=== PATIENT | female | born 1995 | race American Indian/Alaskan Native ===

== ENCOUNTER 2017-04-22 12:21 | Emergency (ER) | payer BC ==
[2017-04-22 12:27] VITALS: BP 147/75
--- NOTE | 2017-04-22 14:46 | Emergency Department Report ---
ED Female HPI - General Chief complaint: Urogenital-Female Stated complaint: VAGINAL DISCHARGE Time Seen by Provider: 04/22/17 14:46 Source: patient Mode of arrival: Ambulatory Limitations: No Limitations - History of Present Illness Initial comments: Patient reports that she wants to be checked for STD and to be treated. Unsafe sex and unknown if partner have STD. Denies any pain at present but says she was having pelvic pain. Denies some vaginal discharge and that she had small amount of vaginal bleeding and but not now. Patient says that she has heavy menses 1 month and she says she does not have [facility] but like to be referred to one. She denies any abdominal pain, nausea or vomiting or fever or chills. Denies any constipation. She said her last menstrual period B period was about 03/09/2017 .denies any medical problems. Denies any urinary frequency, urgency or burning MD Complaint: vaginal bleeding, vaginal discharge, pelvic pain, possible STD Onset/Timin -: days(s) Severity scale (0 -10): 0 Are you Now?: No Associated Symptoms: vaginal discharge, vaginal bleeding, abdominal pain. denies: nausea/vomiting, fever/chills, headaches, loss of appetite, dysuria, hematuria, rash, seizure, shortness of breath, syncope, weakness - Related Data Sexually active: Yes Previous Rx's Medication Instructions Recorded Last Taken Type Ibuprofen [Motrin 800 MG tab] 800 mg PO Q8HR PRN #30 tablet 04/19/16 Unknown Rx Polymyxin B Sulf/Trimethoprim 2 drop OP Q6H #10 ml 04/19/16 Unknown Rx [Polytrim Eye Drops [id number]/0.1%] metroNIDAZOLE [Flagyl] 500 mg PO Q12HR 7 Days #14 tab 04/22/17 Unknown Rx Allergies Allergy/AdvReac Type Severity Reaction Status Date / Time coconut oil Allergy Hives Verified 04/18/16 20:50 ED Review of Systems ROS: Stated complaint: VAGINAL DISCHARGE Other details as noted in HPI Comment: All other systems reviewed and negative Constitutional: no symptoms reported Eyes: denies: eye pain, vision change ENT: denies: throat pain, congestion Respiratory: no symptoms reported Cardiovascular: denies: chest pain, palpitations, dyspnea on exertion, orthopnea , edema, syncope, paroxysmal nocturnal dyspnea Gastrointestinal: abdominal pain. denies: nausea, vomiting, diarrhea, constipation, hematemesis, melena, hematochezia Genitourinary: frequency, discharge, abnormal menses, dyspareunia, other (scant amount of vaginal bleeding a few days ago). denies: urgency, dysuria, hematuria Musculoskeletal: denies: back pain, joint swelling, arthralgia, myalgia Skin: denies: rash Neurological: denies: headache, numbness, confusion ED Past Medical Hx - Past Medical History Previous Medical History?: No - Surgical History Past Surgical History?: No - Family History Family history: no significant - Social History Smoking Status: Never Smoker Substance Use Type: None - Medications Home Medications: Home Medications Medication Instructions Recorded Confirmed Last Taken Type Ibuprofen [Motrin 800 MG tab] 800 mg PO Q8HR PRN #30 tablet 04/19/16 Unknown Rx Polymyxin B Sulf/Trimethoprim 2 drop OP Q6H #10 ml 04/19/16 Unknown Rx [Polytrim Eye Drops [id number]/0.1%] metroNIDAZOLE [Flagyl] 500 mg PO Q12HR 7 Days #14 tab 04/22/17 Unknown Rx ED Physical Exam - General Limitations: No Limitations General appearance: alert, in no apparent distress - Head Head exam: Present: atraumatic, normocephalic, normal inspection - Eye Eye exam: Present: normal appearance, PERRL, EOMI. Absent: nystagmus, periorbital swelling, periorbital tenderness Pupils: Present: normal accommodation - ENT ENT exam: Present: normal exam, normal orophraynx, mucous membranes moist - Neck Neck exam: Present: normal inspection, full ROM, other (no C-spine tenderness). Absent: tenderness, meningismus, lymphadenopathy, thyromegaly - Respiratory Respiratory exam: Present: normal lung sounds bilaterally. Absent: respiratory distress, chest wall tenderness, accessory muscle use - Cardiovascular Cardiovascular Exam: Present: regular rate, normal rhythm, normal heart sounds. Absent: systolic murmur, diastolic murmur - GI/Abdominal GI/Abdominal exam: Present: soft, normal bowel sounds. Absent: distended, tenderness, guarding, rebound, rigid, organomegaly, mass, bruit, pulsatile mass , hernia - External exam: Present: normal external exam. Absent: erythema, swelling, lesions, lacerations, ecchymosis, bleeding Speculum exam: Present: vaginal discharge, cervical discharge. Absent: normal speculum exam, erythema, vaginal bleeding, foreign body, tissue, laceration Bi-manual exam: Present: normal bi-manual exam. Absent: cervical motion tendernes, adnexal tenderness, adnexal mass, uterine enlargement, uterine tenderness - Extremities Exam Extremities exam: Present: normal inspection, full ROM, normal capillary refill , other (no clubbing, cyanosis or edema. +2+ systolic extremities and no neurovascular compromise). Absent: tenderness, pedal edema, joint swelling, calf tenderness - Back Exam Back exam: Present: normal inspection, full ROM, other (ambulates without any difficulties). Absent: tenderness, CVA tenderness (R), CVA tenderness (L), muscle spasm, paraspinal tenderness, vertebral tenderness, rash noted - Neurological Exam Neurological exam: Present: alert, oriented X3, normal gait, reflexes normal. Absent: motor sensory deficit - Psychiatric Psychiatric exam: Present: normal affect, normal mood - Skin Skin exam: Present: warm, dry, intact, normal color. Absent: rash - Other Other exam information: Pertinent lab: Both breasts examined with patient sedated with arms on side without any abnormality, right breast exam is normal. Left breasts with 2 x 3 cm mobile mass, nontender to palpate to inner lower left breasts. Both nipples are normal without any discharge. I revealed a normal appearance.. ED Course Vital Signs 04/22/17 12:23 Temperature 98 F Pulse Rate 65 Respiratory 18 Rate Blood Pressure 147/75 O2 Sat by Pulse 100 Oximetry - Reevaluation(s) Reevaluation #1: 04/22/17 17:19 Patient chose to be treated empirically for gonorrhea and chlamydia in emergency room. She was given Rocephin 250 mg IM, azithromycin 1 g by mouth. She is able to tolerate oral liquids. Pelvic exam with vaginal discharge otherwise normal without any CMT. Positive bacterial vaginosis, negative trichomoniasis and negative use. test is negative. And her CBC is normal. ED Medical Decision Making - Lab Data Result diagrams: 04/22/17 15:42 Lab Results 04/22/17 04/22/17 04/22/17 Range/Units 14:55 15:42 15:47 WBC 6.0 (4.5-11.0) K/mm3 RBC 4.17 (3.65-5.03) M/mm3 Hgb 13.4 (10.1-14.3) gm/dl Hct 40.2 (30.3-42.9) % MCV 96 (79-97) fl MCH 32 (28-32) pg MCHC 33 (30-34) % RDW 13.5 (13.2-15.2) % Plt Count 195 (140-440) K/mm3 Lymph % (Auto) 34.2 (13.4-35.0) % Glynn % (Auto) 6.9 (0.0-7.3) % Eos % (Auto) 3.7 (0.0-4.3) % Baso % (Auto) 1.1 (0.0-1.8) % Lymph # 2.0 (1.2-5.4) K/mm3 Glynn # 0.4 (0.0-0.8) K/mm3 Eos # 0.2 (0.0-0.4) K/mm3 Baso # 0.1 (0.0-0.1) K/mm3 Seg Neutrophils % 54.1 (40.0-70.0) % Seg Neutrophils # 3.2 (1.8-7.7) K/mm3 HCG, Qual Negative (Negative) Urine Color Yellow (Yellow) Urine Turbidity Clear (Clear) Urine pH 6.0 (5.0-7.0) Ur Specific [place] 1.023 (1.003-1.030) Urine Protein <15 mg/dl (Negative) mg/dL Urine Glucose (UA) Neg (Negative) mg/dL Urine Ketones Neg (Negative) mg/dL Urine Blood Neg (Negative) Urine Nitrite Neg (Negative) Urine Bilirubin Neg (Negative) Urine Urobilinogen 2.0 (<2.0) mg/dL Ur Leukocyte Esterase Neg (Negative) Urine WBC (Auto) 2.0 (0.0-6.0) /HPF Urine RBC (Auto) 2.0 (0.0-6.0) /HPF U Epithel Cells (Auto) 5.0 (0-13.0) /HPF Urine Mucus Few /HPF Wet prep: Positive bacterial vaginosis, negative yeast and negative chart Coronary and chlamydia pending - Medical Decision Making ED course: Ashen here concerned about being and also concern for STD due to vaginal discharge. She is also concerned that she had her menses for 1 month. Patient says she does not have [facility] and has not seen a physician in years. She is requests then to be referred to [facility] pelvic exam done and findings for vaginal discharge with mild odor otherwise normal. Wet prep revealed bacterial vaginosis, no trichomoniasis or no use. Gonorrhea and chlamydia sent and pending. Patient wants to be treated for gonorrhea and chlamydia. She states that she does not know if her partner have similar symptoms. I discussed with her that she needs to tell her partner that she was treated for STD in emergency room and here she will need to get checked at the health department. She voiced understanding. Patient was given azithromycin 1 g by mouth and Rocephin 250 mg IM in emergency room without any adverse reaction. Patient was also concerned about lump in her left breast that she said it's has been there for several months but she reports she gets bigger when she drinks Sodas. I discussed her diagnosis and treatment plan and also lab reports and she voiced understanding patient discharged home with prescription for Flagyl and to follow up with [facility] in 2-3 days for Pap smear and also for breast exam with outpatient referral for mammogram. She was understanding of discharge instruction and treatment plan. I discussed with her extensively regarding need for Pap smear to check for HPV which is a precursor for cervical cancer and also because she has a history of breast cancer in her family with a breast mass she will need to definitely get a mammogram to check for breast cancer. She can go to the department for further STD testing and also for recheck. Patient says she'll call [facility] in the morning to schedule follow-up visit. Critical care attestation.: If time is entered above; I have spent that time in minutes in the direct care of this critically ill patient, excluding procedure time. ED Disposition Clinical Impression: Concern about STD in female without diagnosis, Bacterial vaginosis, Vaginal discharge, Abnormal menstrual cycle, Breast mass, left Disposition: DC-01 TO HOME OR SELFCARE Is pt being admited?: No Does the pt Need Aspirin: No Condition: Stable Instructions: Bacterial Vaginosis (ED), Safe Sex (ED), Sexually Transmitted Diseases (ED), Lanolin (On the skin), Mammogram (ED), Breast Mass (ED), Pap Smear (ED) Additional Instructions: Please see referral to [facility] doctor and if he cannot get into this Dr. Janice velasco also see [facility] at [facility]. UR scheduled to have a Pap smear due to STD history. Hyou need to be checked for HPV virus which can cause cancer any cervix. He will also need to be referred for outpatient mammogram regarding last breast mass due to family history of breast cancer and mass in your left breast. You were treated for gonorrhea and chlamydia in the emergency room and will need to follow-up at health department in 7-10 days for recheck. You were treated for bacterial vaginosis so please take medication as prescribed. Please not have any sexual activity for the next 2 weeks and please that U partner notes that they need to be checked at the health department for STDs. Avoid drinking all call while taken medication for bacterial vaginosis as the skin cause negative reaction. Prescriptions: metroNIDAZOLE [Flagyl] 500 mg PO Q12HR 7 Days #14 tab Referrals: VERONICA AVENDANO MD [Staff Physician] - 2-3 Days [facility] [Outside] - 2-3 Days Forms: STI Treatment and Prevention, Work/School Release Form(ED)
[2017-04-22 15:11] LABS: Bilirubin,Urine NEG (Negative); Blood,Urine NEG (Negative); Color,Urine Yellow (Yellow); Mucus,Urine FEW /HPF; Nitrite,Urine NEG (Negative); Protein,Urine <15 mg/dL mg/dL (Negative)
[2017-04-22 15:59] LABS: Basophils # (Auto) 0.1 K/mm3 (0.0-0.1); Basophils % (Auto) 1.1 % (0.0-1.8); Eosinophils # (Auto) 0.2 K/mm3 (0.0-0.4); Eosinophils % (Auto) 3.7 % (0.0-4.3); Hematocrit 40.2 % (30.3-42.9); Hemoglobin 13.4 gm/dl (10.1-14.3); Lymphocytes % (Auto) 34.2 % (13.4-35.0); Mean Corpuscular HGB Conc 33 % (30-34); Mean Corpuscular Hemoglobin 32 pg (28-32); Mean Corpuscular Volume 96 fl (79-97); Monocytes # (Auto) 0.4 K/mm3 (0.0-0.8); Monocytes % (Auto) 6.9 % (0.0-7.3); Platelet Count 195 K/mm3 (140-440); Red Blood Count 4.17 M/mm3 (3.65-5.03); Red Cell Distribution Width 13.5 % (13.2-15.2)
[2017-04-22] MEDS ORDERED: ROCEPHIN IM ONE (17:12)
[2017-04-22] MEDS ORDERED: XYLOCAINE 1% MPF 5 mL INFILTRATI ONE (17:12)
[2017-04-22] MEDS ORDERED: ZITHROMAX PO ONE (17:12)
== END 2017-04-22 17:47 | disposition home or self-care (01) ==
LOC: ED 12:21
DX: N76.0 Acute vaginitis (principal); B96.89 Other specified bacterial agents as the cause of diseases classified elsewhere; N95.8 Other specified menopausal and perimenopausal disorders; N63.20 Unspecified lump in the left breast, unspecified quadrant; Z91.048 Other nonmedicinal substance allergy status
CPT/HCPCS: 36415; 81001; 84703; 85025; 87086; 87210; 96372; 99284; J0696

== ENCOUNTER 2017-12-22 13:42 | Emergency (ER) | payer BC ==
[2017-12-22] MEDS ORDERED: MOTRIN PO ONE (18:04)
--- NOTE | 2017-12-22 18:04 | Emergency Department Report ---
HPI - General Chief Complaint: Urogenital-Female Time Seen by Provider: 12/22/17 17:20 - HPI HPI: Patient is a 22-year-old female presents with ED complaining of lump/mass on left breast for the past year. Patient states that she received a mammogram in May or June while she was in nursing home and was still she has a mass in her breast. Patient states that masses become painful and breast is painful to touch. She denies fevers/chills/nausea vomiting/abdominal pain/chest pain/shortness of breath/discharge or trauma to the breast ED Past Medical Hx - Past Medical History Previous Medical History?: No - Surgical History Past Surgical History?: No - Social History Smoking Status: Current Every Day Smoker Substance Use Type: None - Medications Home Medications: Home Medications Medication Instructions Recorded Confirmed Last Taken Type Polymyxin B Sulf/Trimethoprim 2 drop OP Q6H #10 ml 04/19/16 Unknown Rx [Polytrim Eye Drops [id number]/0.1%] metroNIDAZOLE [Flagyl] 500 mg PO Q12HR 7 Days #14 tab 04/22/17 Unknown Rx Ibuprofen [Motrin 800 MG tab] 800 mg PO Q8HR PRN #30 tablet 12/22/17 Unknown Rx Sulfamethoxazole/Trimethoprim 1 each PO BID #20 tablet 12/22/17 Unknown Rx [Bactrim DS TAB] Tocopherol [Vitamin E Cap] 200 unit PO DAILY #30 capsule 12/22/17 Unknown Rx ED Review of Systems ROS: Stated complaint: POSS CYST ON (L) BREAST/CHEST PAINS Other details as noted in HPI Constitutional: denies: chills, fever Eyes: denies: eye pain, eye discharge, vision change ENT: denies: ear pain, throat pain, hearing loss Respiratory: denies: cough, shortness of breath, SOB with exertion, wheezing Cardiovascular: denies: chest pain, palpitations Endocrine: no symptoms reported Gastrointestinal: denies: abdominal pain, nausea, diarrhea Genitourinary: denies: urgency, dysuria, discharge Musculoskeletal: denies: back pain, joint swelling, arthralgia Skin: denies: rash, lesions Neurological: denies: headache, weakness, paresthesias Psychiatric: denies: anxiety, depression Hematological/Lymphatic: denies: easy bleeding, easy bruising Physical Exam - Physical Exam Vital Signs: Vital Signs 12/22/17 13:49 Temperature 99.2 F Pulse Rate 93 H Respiratory 20 Rate Blood Pressure 135/81 O2 Sat by Pulse 100 Oximetry Physical Exam: GENERAL: Alert and oriented x3, no apparent distress, Normal Gait, atraumatic. HEAD: Head is normocephalic and a-traumatic. EYES: Extra ocular muscles are intact. Pupils are equal, round, and reactive to light and accommodation. LUNGS: Symetrical with respiration, No wheezing, HEART: S1, S2 present, regular rate and rhythm without murmur, no rubs, no gallops. Non tender to palpation BREAST: Symetrical, Supple bilaterally, Masses palpated from 6-8 o clock tender to palpation, no other lesions, ulcerations. SKIN: Warm and dry, No lesions, No ulceration or induration present. ED Course Vital Signs 12/22/17 13:49 Temperature 99.2 F Pulse Rate 93 H Respiratory 20 Rate Blood Pressure 135/81 O2 Sat by Pulse 100 Oximetry ED Medical Decision Making - Medical Decision Making 22-year-old female presents with painful mass of the left breast. ED course: Patient received ibuprofen for pain. I discussed with patient follow-up with/[facility] for examination, ultrasound and possibly biopsy. I discussed the patient patient to go home on antibiotics/pain medication trial Patient is in no acute or respiratory distress. She understands all instructions given. Critical care attestation.: If time is entered above; I have spent that time in minutes in the direct care of this critically ill patient, excluding procedure time. ED Disposition Clinical Impression: Breast mass, left, Mastodynia of left breast Disposition: DC-01 TO HOME OR SELFCARE Is pt being admited?: No Does the pt Need Aspirin: No Condition: Stable Instructions: Chest Pain (ED) Additional Instructions: Make sure to follow up with the primary care physician as discussed. Take all your medications as you've been prescribed. If you have any worsening symptoms or develop new symptoms please return to ED immediately. Prescriptions: Ibuprofen [Motrin 800 MG tab] 800 mg PO Q8HR PRN #30 tablet PRN Reason: Pain Sulfamethoxazole/Trimethoprim [Bactrim DS TAB] 1 each PO BID #20 tablet Tocopherol [Vitamin E Cap] 200 unit PO DAILY #30 capsule Referrals: PRIMARY MD ORTIZ [Primary Care Provider] - 3-5 Days RYAN BRIDGES MD [Referring] - 3-5 Days [facility] [Outside] - 3-[address] [facility] [Outside] - 3-5 Days [facility] [Outside] - 3-5 Days Forms: Work/School Release Form(ED) Time of Disposition: 18:16
[2017-12-22 18:25] VITALS: BP 134/72
== END 2017-12-22 18:27 | disposition home or self-care (01) ==
LOC: ED 13:42
DX: N63.0 Unspecified lump in unspecified breast (principal); N64.4 Mastodynia; F17.200 Nicotine dependence, unspecified, uncomplicated; Z91.018 Allergy to other foods
CPT/HCPCS: 99282

== ENCOUNTER 2018-09-12 20:38 | Emergency (ER) | payer BC ==
[2018-09-12 21:45] VITALS: BP 123/84
--- NOTE | 2018-09-12 21:46 | Event Note ---
ED Screening Note Date of service: 09/12/18 Time: 21:41 ED Screening Note: This is a 23 y.o. F. that presents to the ER with migraine, SOB, sore throat, chills, and vomiting x 4 days. LMP 06/13/2018, history of irregular menses and homosexual. PMH of migraines This initial assessment/diagnostic orders/clinical plan/treatment(s) is/are subject to change based on patients health status, clinical progression and re- assessment by fellow clinical providers in the ED. Further treatment and workup at subsequent clinical providers discretion. Patient/guardian urged not to elope from the ED as their condition may be serious if not clinically assessed and managed. Initial orders include: ACC for further evaluation Rapid strep
[2018-09-13] MEDS ORDERED: TORADOL IM ONE (00:41)
[2018-09-13] MEDS ORDERED: BICILLIN L-A IM ONE (00:42)
[2018-09-13] MEDS ORDERED: LIDOCAINE VISCOUS 2% PO ONE (00:42)
[2018-09-13] MEDS ORDERED: DECADRON PO ONE (00:43)
[2018-09-13] MEDS ORDERED: ZOFRAN ODT PO ONE (00:43)
--- NOTE | 2018-09-13 01:43 | Emergency Department Report ---
ED General Adult HPI - General Chief complaint: Dyspnea/Respdistress Stated complaint: HEAD PAIN/SHORTNESS OF BREATH Time Seen by Provider: 09/12/18 21:41 Source: patient Mode of arrival: Ambulatory Limitations: No Limitations - History of Present Illness Initial comments: Patient is a 23-year-old [place] female with a history of chronic migraine headache who presents to the ED with complaint of acute onset persistent severe sore throat, dysphagia, swollen throat, diffuse body aches and pains, numbness or sinus congestion, dry cough, and generalized weakness for the last 5 days. Patient also complains of subjective fever and lack of appetite. Patient denies chest pain, shortness of breath, abdominal pain, dizziness, diarrhea, dysuria, urinary frequency and urgency, change in vision or neck pain. MD Complaint: SORE THROAT; DYSPHAGIA, HEADACHE, BODY ACHES -: Sudden, days(s) (5) Location: mouth Radiation: non-radiation Severity scale (0 -10): 8 Quality: burning, aching, sharp Consistency: constant Improves with: none Worsens with: none Associated Symptoms: denies other symptoms, fever/chills, headaches, loss of appetite, malaise. denies: confusion, chest pain, cough, diaphoresis, nausea/vomiting, rash, shortness of breath, syncope, weakness, other Treatments Prior to Arrival: none - Related Data Previous Rx's Medication Instructions Recorded Last Taken Type Sulfamethoxazole/Trimethoprim 1 each PO BID #6 tablet 03/16/18 Unknown Rx [Bactrim Ds Tablet] predniSONE [Deltasone] 50 mg PO QDAY #5 tab 03/16/18 Unknown Rx Azithromycin [Zithromax Z-WENDY] 250 mg PO DAILY #6 tablet 09/13/18 Unknown Rx Butalb/Acetamin/Caff 50-325-40 1 each PO Q4H PRN #12 tablet 09/13/18 Unknown Rx [Fioricet 50-325-40] Ibuprofen [Motrin] 600 mg PO Q8H PRN #21 tablet 09/13/18 Unknown Rx Lidocaine Viscous 2% 10 ml PO Q6H PRN #120 ml 09/13/18 Unknown Rx Ondansetron [Zofran Odt] 4 mg PO Q8HR #15 tab.rapdis 09/13/18 Unknown Rx Prednisone [predniSONE 10 mg 10 mg PO .TAPER #21 tab.ds.pk 09/13/18 Unknown Rx (6-Day Pack, 21 Tabs)] Allergies Allergy/AdvReac Type Severity Reaction Status Date / Time coconut oil Allergy Hives Verified 04/18/16 20:50 ED Review of Systems ROS: Stated complaint: HEAD PAIN/SHORTNESS OF BREATH Other details as noted in HPI Constitutional: denies: chills, fever Eyes: denies: eye pain, eye discharge, vision change ENT: throat pain, congestion, other (dysphagia, tonsillitis, ). denies: ear pain Respiratory: denies: cough, shortness of breath, wheezing Cardiovascular: denies: chest pain, palpitations Endocrine: no symptoms reported Gastrointestinal: denies: abdominal pain, nausea, diarrhea Genitourinary: denies: urgency, dysuria, discharge Musculoskeletal: arthralgia, myalgia. denies: back pain, joint swelling Skin: denies: rash, lesions Neurological: denies: headache, weakness, paresthesias Psychiatric: denies: anxiety, depression Hematological/Lymphatic: denies: easy bleeding, easy bruising ED Past Medical Hx - Past Medical History Previous Medical History?: No - Surgical History Past Surgical History?: No - Social History Smoking Status: Current Every Day Smoker - Medications Home Medications: Home Medications Medication Instructions Recorded Confirmed Last Taken Type Sulfamethoxazole/Trimethoprim 1 each PO BID #6 tablet 03/16/18 Unknown Rx [Bactrim Ds Tablet] predniSONE [Deltasone] 50 mg PO QDAY #5 tab 03/16/18 Unknown Rx Azithromycin [Zithromax Z-WENDY] 250 mg PO DAILY #6 tablet 09/13/18 Unknown Rx Butalb/Acetamin/Caff 50-325-40 1 each PO Q4H PRN #12 tablet 09/13/18 Unknown Rx [Fioricet 50-325-40] Ibuprofen [Motrin] 600 mg PO Q8H PRN #21 tablet 09/13/18 Unknown Rx Lidocaine Viscous 2% 10 ml PO Q6H PRN #120 ml 09/13/18 Unknown Rx Ondansetron [Zofran Odt] 4 mg PO Q8HR #15 tab.rapdis 09/13/18 Unknown Rx Prednisone [predniSONE 10 mg 10 mg PO .TAPER #21 tab.ds.pk 09/13/18 Unknown Rx (6-Day Pack, 21 Tabs)] ED Physical Exam - General Limitations: No Limitations General appearance: alert, in no apparent distress - Head Head exam: Present: atraumatic, normocephalic, normal inspection - Eye Eye exam: Present: normal appearance, PERRL, EOMI. Absent: scleral icterus, conjunctival injection, nystagmus, periorbital swelling Pupils: Present: normal accommodation - ENT ENT exam: Present: mucous membranes moist, TM's normal bilaterally, normal external ear exam, other (Erythematous swollen tonsills with thick white exudates) - Neck Neck exam: Present: normal inspection - Respiratory Respiratory exam: Present: normal lung sounds bilaterally. Absent: respiratory distress, wheezes, rales, rhonchi, chest wall tenderness, accessory muscle use, decreased breath sounds, prolonged expiratory - Cardiovascular Cardiovascular Exam: Present: regular rate, normal rhythm, normal heart sounds. Absent: systolic murmur, diastolic murmur, rubs, gallop - GI/Abdominal GI/Abdominal exam: Present: soft, normal bowel sounds. Absent: distended, tenderness, guarding, hyperactive bowel sounds, organomegaly, mass, pulsatile mass, hernia - Rectal Rectal exam: Present: deferred - Extremities Exam Extremities exam: Present: normal inspection, full ROM, normal capillary refill - Back Exam Back exam: Present: normal inspection, full ROM. Absent: tenderness, CVA tenderness (R), CVA tenderness (L), muscle spasm, paraspinal tenderness, vertebral tenderness - Neurological Exam Neurological exam: Present: alert, oriented X3, CN II-XII intact, normal gait, reflexes normal - Psychiatric Psychiatric exam: Present: normal affect, normal mood - Skin Skin exam: Present: warm, dry, intact, normal color. Absent: rash ED Course Vital Signs 09/12/18 21:43 Temperature 97.9 F Pulse Rate 96 H Respiratory 18 Rate Blood Pressure 123/84 O2 Sat by Pulse 100 Oximetry - Reevaluation(s) Reevaluation #1: 09/13/18 01:53 Patient is alert and oriented 3 and is not in distress with normal vital signs. The Rapid Strep test is negative. Patient was empirically treated in the ED for tonsillitis and suspected streptococcal pharyngitis. On reevaluation, patient's pain is well-controlled and is discharged home in occasions and advised to follow-up with her primary care physician in 5-7 days for reevaluation. Patient advised to return to the ED immediately if symptoms get worse. ED Medical Decision Making - Medical Decision Making Patient is alert and oriented 3 and is not in distress with normal vital signs. The Rapid Strep test is negative. Patient was empirically treated in the ED for tonsillitis and suspected streptococcal pharyngitis. On reevaluation, patient's pain is well-controlled and is discharged home in occasions and advised to follow-up with her primary care physician in 5-7 days for reevaluation. Patient advised to return to the ED immediately if symptoms get worse. - Differential Diagnosis acute pharyngitis, acute tonsillitis, migraine headache, Nausea, vomiting Critical care attestation.: If time is entered above; I have spent that time in minutes in the direct care of this critically ill patient, excluding procedure time. ED Disposition Clinical Impression: Migraine headache without aura Qualifiers: Status migrainosus presence: without status migrainosus Intractability: not intractable Qualified Code(s): G43.009 - Migraine without aura, not intractable, without status migrainosus Acute tonsillitis Qualifiers: Pharyngitis/tonsillitis etiology: unspecified etiology Qualified Code(s): J03.90 - Acute tonsillitis, unspecified Acute pharyngitis Qualifiers: Pharyngitis/tonsillitis etiology: unspecified etiology Qualified Code(s): J02.9 - Acute pharyngitis, unspecified Disposition: DC- TO HOME OR SELFCARE Is pt being admited?: No Does the pt Need Aspirin: No Condition: Stable Instructions: Pharyngitis (ED), Tonsillitis (ED), Migraine Headache (ED) Additional Instructions: Take medications with food, drink plenty of fluids and follow-up with your primary care physician in 5-7 days for reevaluation. Return to the ED immediately if symptoms get worse. Prescriptions: Butalb/Acetamin/Caff 50-325-40 [Fioricet 50-325-40] 1 each PO Q4H PRN #12 tablet PRN Reason: Headache Lidocaine Viscous 2% 10 ml PO Q6H PRN #120 ml PRN Reason: Pain , Severe (7-10) Ibuprofen [Motrin] 600 mg PO Q8H PRN #21 tablet PRN Reason: Pain Prednisone [predniSONE 10 mg (6-Day Pack, 21 Tabs)] 10 mg PO .TAPER #21 tab.ds.pk Azithromycin [Zithromax Z-WENDY] 250 mg PO DAILY #6 tablet Ondansetron [Zofran Odt] 4 mg PO Q8HR #15 tab.rapdis Referrals: GUY BOLANOS MD [Primary Care Provider] - 3-5 Days Time of Disposition: 01:40 Print Language: LATVIAN
== END 2018-09-13 02:11 | disposition home or self-care (01) ==
LOC: ED 20:38
DX: G43.909 Migraine, unspecified, not intractable, without status migrainosus (principal); J03.90 Acute tonsillitis, unspecified; F17.200 Nicotine dependence, unspecified, uncomplicated; Z79.899 Other long term (current) drug therapy; Z91.018 Allergy to other foods
CPT/HCPCS: 87116; 87430; 96372; 99283; J0561; J1885; J8540; Q0162

== ENCOUNTER 2019-08-05 11:08 | Emergency (ER) | payer BC ==
[2019-08-05 11:16] VITALS: BP 129/75
[2019-08-05] MEDS ORDERED: IBUPROFEN ORAL LIQD 100 MG/5 ML ORAL.LIQD PO ONE (11:55)
[2019-08-05] MEDS ORDERED: dexAMETHasone 20 MG/5 ML VIAL IM ONE (11:55)
[2019-08-05] MEDS ORDERED: PENICILLIN G BENZATHINE 1.2 MILLION UNIT/2 ML INJ IM ONE (11:55)
--- NOTE | 2019-08-05 12:30 | XRay Report ---
CHEST 1 VIEW INDICATION / CLINICAL INFORMATION: fever cough. COMPARISON: None available. FINDINGS: SUPPORT DEVICES: None. HEART / MEDIASTINUM: No significant abnormality. LUNGS / PLEURA: No significant pulmonary or pleural abnormality. No pneumothorax. ADDITIONAL FINDINGS: No significant additional findings. IMPRESSION: No acute pulmonary or pleural abnormality Signer Name: Morris Manuel MD FACR Signed: 08/05/2019 12:25 PM Workstation Name: [employer]([email or web address] Home Monitoring
--- NOTE | 2019-08-05 12:53 | Emergency Department Report ---
ED Fever HPI - General Chief Complaint: Pain General Stated Complaint: BODY ACHE/NO SMELL/NO TASTE/N/V Time Seen by Provider: 08/05/19 11:48 Source: patient Exam Limitations: no limitations - History of Present Illness Initial Comments: This is a 24-year-old female with history of recurrent tonsillitis apparent presents with fever body aches sore throat cough for several days. She works at [employer]. Unknown exposure to illness. No recent travel. Nonproductive cough. Denies shortness of breath. Does have decreased ability to taste. Timing/Duration: other (Several days) Fever Severity/Quality: subjective Associated Symptoms: cough, sore throat, other (Body aches) ED Review of Systems ROS: Stated complaint: BODY ACHE/NO SMELL/NO TASTE/N/V Other details as noted in HPI Constitutional: fever, malaise ENT: throat pain Respiratory: cough. denies: shortness of breath Cardiovascular: denies: chest pain Gastrointestinal: denies: abdominal pain, nausea, vomiting ED Past Medical Hx - Past Medical History Previous Medical History?: No - Surgical History Past Surgical History?: No - Social History Smoking Status: Current Every Day Smoker Substance Use Type: None - Medications Home Medications: Home Medications Medication Instructions Recorded Confirmed Last Taken Type Sulfamethoxazole/Trimethoprim 1 each PO BID #6 tablet 03/16/18 Unknown Rx [Bactrim Ds Tablet] predniSONE [Deltasone] 50 mg PO QDAY #5 tab 03/16/18 Unknown Rx Azithromycin [Zithromax Z-WENDY] 250 mg PO DAILY #6 tablet 09/13/18 Unknown Rx Butalb/Acetamin/Caff 50-325-40 1 each PO Q4H PRN #12 tablet 09/13/18 Unknown Rx [Fioricet 50-325-40] Ibuprofen [Motrin] 600 mg PO Q8H PRN #21 tablet 09/13/18 Unknown Rx Lidocaine Viscous 2% 10 ml PO Q6H PRN #120 ml 09/13/18 Unknown Rx Ondansetron [Zofran Odt] 4 mg PO Q8HR #15 tab.rapdis 09/13/18 Unknown Rx Prednisone [predniSONE 10 mg 10 mg PO .TAPER #21 tab.ds.pk 09/13/18 Unknown Rx (6-Day Pack, 21 Tabs)] Ibuprofen Oral Liqd [Motrin Oral 10 ml PO TID 4 Days #1 bottle 08/05/19 Unknown Rx Liq 100 mg/5 ml] ED Physical Exam - General Limitations: No Limitations General appearance: alert, in no apparent distress, other (Normal voice) - Head Head exam: Present: atraumatic, normocephalic - Eye Eye exam: Present: normal appearance - ENT ENT exam: Present: other (Edematous erythematous symmetric tonsils with exudates) - Neck Neck exam: Present: normal inspection - Respiratory Respiratory exam: Present: normal lung sounds bilaterally. Absent: respiratory distress, wheezes, rales, rhonchi - Cardiovascular Cardiovascular Exam: Present: regular rate, normal rhythm, normal heart sounds. Absent: systolic murmur, diastolic murmur, rubs, gallop - GI/Abdominal GI/Abdominal exam: Present: soft, normal bowel sounds. Absent: distended, guarding, rebound - Extremities Exam Extremities exam: Present: normal inspection - Neurological Exam Neurological exam: Present: alert, oriented X3 - Psychiatric Psychiatric exam: Present: normal affect, normal mood - Skin Skin exam: Present: warm, dry, intact, normal color. Absent: rash ED Course Vital Signs 08/05/19 08/05/19 11:12 11:45 Temperature 98 F 99.3 F Pulse Rate 118 H Respiratory 18 Rate Blood Pressure 129/75 O2 Sat by Pulse 99 Oximetry ED Medical Decision Making - Medical Decision Making Acute streptococcal pharyngitis: Treated with Bicillin IM, Decadron IM, ibuprofen suspension. Recommended COVID-19 testing before she returns to work. After treatment heart rate normalized to 95 bpm Critical care attestation.: If time is entered above; I have spent that time in minutes in the direct care of this critically ill patient, excluding procedure time. ED Disposition Clinical Impression: Acute streptococcal pharyngitis Disposition: DC-01 TO HOME OR SELFCARE Is pt being admited?: No Does the pt Need Aspirin: No Condition: Stable Instructions: Strep Throat (ED) Prescriptions: Ibuprofen Oral Liqd [Motrin Oral Liq 100 mg/5 ml] 10 ml PO TID 4 Days #1 bottle Referrals: GUY BOLANOS MD [Staff Physician] - 3-5 Days Forms: Work/School Release Form(ED)
== END 2019-08-05 13:05 | disposition home or self-care (01) ==
LOC: ED 11:08
DX: J02.0 Streptococcal pharyngitis (principal); F17.200 Nicotine dependence, unspecified, uncomplicated; Z79.1 Long term (current) use of non-steroidal anti-inflammatories (NSAID); Z79.899 Other long term (current) drug therapy; Z88.8 Allergy status to other drugs, medicaments and biological substances
CPT/HCPCS: 71045; 96372; 99283; J0561; J1100